=== PATIENT | male | born 1950 | race Caucasian/White ===

== ENCOUNTER 2022-12-06 11:21 | Inpatient (IN) | payer MEDICARE, MEDICAID ==
[~2022-12-06] VITALS: Ht 177.8 cm; Wt 86.9 kg
[2022-12-06] MEDS ORDERED: AMLO5 PO ×2 (11:49→17:14)
[2022-12-06] MEDS ORDERED: Prinivil10 MG (11:49)
[2022-12-06] MEDS ORDERED: HYDROCHLOROTH12.5 MG PO (11:49)
[2022-12-06 12:28] LABS: Albumin, Blood 3.2 g/dL (3.4-5.0); Albumin/Globulin Ratio 0.9 (0.8-1.8); Bilirubin, Total 0.5 mg/dL (0.1-1.0); Calcium, Blood 8.6 mg/dL (8.5-10.1); Creatinine, Blood 5.24 mg/dL (0.60-1.20); Globulin, Blood 3.6 g/dL (2.2-4.0); Potassium, Blood 4.3 mmol/L (3.5-5.5); Total Protein, Blood 6.8 g/dL (6.4-8.2)
[2022-12-06 12:41] LABS: BASOPHILS ABSOLUTE AUTO 0.05 K/mm3 (0.00-0.23); BASOPHILS PERCENT AUTO 1 % (0-2); EOSINOPHILS ABSOLUTE AUTO 0.14 K/mm3 (0.00-0.68); EOSINOPHILS PERCENT AUTO 2 % (0-6); Hematocrit 42.8 % (37.0-53.0); IMMATURE GRAN ABSOLUTE AUTO 0.06 K/mm3 (0.00-0.10); IMMATURE GRAN PERCENT AUTO 1 % (0-1); LYMPHOCYTES PERCENT AUTO 11 % (21-46); MONOCYTES ABSOLUTE AUTO 0.89 K/mm3 (0.16-1.47); MONOCYTES PERCENT AUTO 11 % (4-13); Mean Corpuscular HGB 34.1 pg (26.0-34.0); Mean Corpuscular HGB Conc 37.4 g/dL (31.5-36.5); Mean Corpuscular Volume 91 fL (80-100); Mean Platelet Volume 12.8 fL (9.1-12.4); NEUTROPHILS ABSOLUTE AUTO 6.01 K/mm3 (1.96-9.15); NEUTROPHILS PERCENT AUTO 75 % (41-73); Platelet Count 195 K/mm3 (150-400); RDW Coefficient Variation 13.2 % (11.7-14.2); RDW Standard Deviation 44.1 fL (35.1-46.3); Red Blood Cell Count 4.69 M/mm3 (4.30-5.90); White Blood Cell Count 8.05 K/mm3 (4.00-11.30)
[2022-12-06 13:26] LABS: Source, Urine Clean Catch
[2022-12-06 14:29] LABS: Appearance, Urine Clear (Clear); Bilirubin, Urine Neg (Neg); Blood, Urine Neg (Neg); Color, Urine Yellow (P-Yellow); Glucose Qualitative, Urine Neg (Neg); Ketones, Urine Neg (Neg); Leukocyte Esterase, Urine Neg (Neg); Nitrite, Urine Neg (Neg); Protein, Urine 1+ (Neg); Urobilinogen, Urine NORM (Normal)
[2022-12-06] MEDS ORDERED: LISI20 PO (17:14)
[2022-12-06] MEDS ORDERED: HYDCHL25 PO (17:14)
--- NOTE | 2022-12-06 18:38 | NUR ---
Received pt from ED at 1815 awake and alert x3. Denies pain. Resp even nonlabored on RA. Tele placed with report of SR 89 with PAC. Na Bicarb infusing at 125ml/hr. Pt states last ETOH was 5 days ago. No WD sx noted. Nicotine patch on R shoulder. Oriented to room and call light. Bed in lowest position.
[2022-12-07 02:01] VITALS: BP 90/55
--- NOTE | 2022-12-07 05:07 | NUR ---
SHIFT SUMMARY 72 YR M ADMITTED ON 12/06/22 FOR ACUTE RENAL FAILURE. FULL CODE. NO ACUTE CHANGES THIS SHIFT. PT UNHOOKED HIS IV TO GO TO THE BATHROOM AND IT BLED ALL OVER THE BATHROOM, FLOOR, BED, AND PT. IV STAYED INTACT AND PT WAS EDUCATED TO UNPLUG IV PUMP FROM WALL FOR AMBULATION AND NOT THE LINE ITSELF. HE IS VERY PLEASANT AND COOPERATIVE WITH CARE. HE WAS AWAKE FOR MOST OF THE NIGHT WATCHING TV. NO S/S OF ETOH WITHDRAWL. BICARB RUNNING @ 125.
[2022-12-07 05:29] LABS: Bun/Creatinine Ratio 44.6 (12.0-20.0); Calcium, Blood 8.4 mg/dL (8.5-10.1); Creatinine, Blood 2.04 mg/dL (0.60-1.20); Potassium, Blood 3.3 mmol/L (3.5-5.5)
[2022-12-07 07:42] VITALS: BP 101/57
[2022-12-07 15:31] VITALS: BP 89/60
--- NOTE | 2022-12-07 17:51 | NUR ---
SHIFT SUMMARY: PT A&O X4 THIS SHIFT. PT PLEASANT AND COOPERATIVE WITH ALL CARE. SODIUM BICARD CHANGED TO NORMAL SALINE THIS AM INFUSING @125/HR IN LEFT WRIST. NO ACUTE CHANGES THIS SHIFT. PT INDEPENDENT IN ROOM. PT RECEIVED ONE TIME DOSE OF 40MEG POTASSIUM TOLERATED WELL. NO S/S OF ALCOHOL WITHDRAWAL. HOPES TO D/C TOMORROW. CALL LIGHT IN REACH. BED IN LOWEST POSITION. WILL CONTINUE TO MONITOR.
[2022-12-07 20:00] VITALS: BP 97/65
--- NOTE | 2022-12-08 03:44 | NUR ---
SHIFT SUMMARY. SHIFT HAS BEEN UNREMARKABLE. PT AOX4, PLEASANT, COOPERATIVE WITH CARE. HAS SLEPT THROUGH MOST OF SHIFT AFTER 2100 SHIFT ASSESSMENT AND MED PASS. NO COMPLAINTS OF PAIN THIS SHIFT. FLUIDS RUNNING THROUGHOUT SHIFT WITH NO DIFFICULTY. TELE NSR WITH NO EVENTS. NO MANIFESTATIONS OF ALCOHOL WITHDRAWAL. INDEPENDENT WITHIN ROOM. BED LOCKED IN LOWEST POSITION. CALL LIGHT LEFT WITHIN REACH.
[2022-12-08 04:01] VITALS: BP 112/65
[2022-12-08 05:21] LABS: Bun/Creatinine Ratio 50.8 (12.0-20.0); Calcium, Blood 8.3 mg/dL (8.5-10.1); Creatinine, Blood 1.22 mg/dL (0.60-1.20); Potassium, Blood 4.2 mmol/L (3.5-5.5)
[2022-12-08 07:20] VITALS: BP 115/74
--- NOTE | 2022-12-08 11:50 | NUR ---
DISCHARGE AND SHIFT SUMMARY PATIENT DISCHARGED. DISCHARGE INSTRUCTIONS REVIEWED WITH PATIENT. PATIENT ABLE TO INDEPENDENTLY AMBULATE. DENIES ANY PAIN. IV DC'D. PATIENT HAS TRANSP[facility] PATIENT INTENDING TO END UP IN [facility] TO ESTABLISH RESIDANCY PER PATIENT. PATIENT CURRENTLY DOES NOT HAVE PCP SINCE [place] AND IN THE PROCESS OF MOVING. BELONGINGS SENT HOME WITH PATIENT.
== END 2022-12-08 12:03 | disposition home or self-care (01) | DRG 683 ==
LOC: ER 11:21 → MEDS 14:39 → ENPENDDIS 12-08 11:12 → MEDS 12-08 12:03
PROVIDERS: Emergency Medicine; ADMIT Internal Medicine
PROC: HZ2ZZZZ Detoxification Services for Substance Abuse Treatment (ICD-10-PCS; principal; 2022-12-07)
DX: N17.9 Acute kidney failure, unspecified (principal); E87.1 Hypo-osmolality and hyponatremia; E87.20 Acidosis, unspecified; E86.0 Dehydration; I10 Essential (primary) hypertension; F10.20 Alcohol dependence, uncomplicated; F17.210 Nicotine dependence, cigarettes, uncomplicated; I95.9 Hypotension, unspecified; Z79.811 Long term (current) use of aromatase inhibitors; Z79.899 Other long term (current) drug therapy; Z71.41 Alcohol abuse counseling and surveillance of alcoholic; Z71.6 Tobacco abuse counseling
CPT/HCPCS: 36415; 51798; 76770; 80048; 80053; 82550; 82565; 82570; 84300; 85025; 93005; 93010; 96361; 96365; 96366; 99285-25; A9270; J1644; J7030; J7070